=== PATIENT | male | born 1945 ===

== ENCOUNTER 2022-04-09 10:13 | Inpatient (IN) ==
[2022-04-09 11:25] LABS: Basophils % 0.1 %; Hematocrit 38.6 % (37.5-50.1); Hemoglobin 12.8 g/dL (12.9-16.9); Immature Granulocytes % 0.7 % (0-4); Lymphocytes # 0.5 K/mcL (0.6-4.6); Lymphocytes % 6.5 %; Mean Corpuscular HGB Conc 33.2 g/dL (31.6-35.5); Mean Corpuscular Hemoglobin 29.5 pg (28.0-33.3); Mean Corpuscular Volume 88.9 fL (83.0-100.0); Mean Platelet Volume 11.2 fL (9.4-12.4); Monocytes # 0.5 K/mcL (0.0-1.3); Monocytes % 6.7 %; Neutrophils # 6.6 K/mcL (1.6-8.9); Platelet Count 196 K/mcL (140-400); Red Blood Count 4.34 M/mcL (4.19-5.50); Red Cell Distribution Width 13.2 % (11.5-14.5); White Blood Count 7.7 K/mcL (4.3-11.1)
[2022-04-09] MEDS ORDERED: Vancomycin (wt based) 1,000 MG VIAL IV STA (11:31)
[2022-04-09] MEDS ORDERED: Piperacillin/Tazobactam 3.375 GM in 0.9 % Sodium Chloride Mini Bag 100 ML IVPB ONE (11:33)
[2022-04-09 11:54] LABS: BUN/Creatinine Ratio 27 (6-26); Blood Urea Nitrogen 23 mg/dL (8-23); Calcium 10.3 mg/dL (8.6-10.3); Carbon Dioxide 27 mEq/L (23-29); Chloride 94 mEq/L (98-107); Glucose 251 mg/dL (70-105); Osmolality,Calculated 282 (280-300); Potassium 4.6 mEq/L (3.5-5.1); Sodium 130 mEq/L (136-145)
[2022-04-09] MEDS ORDERED: Vancomycin 1,250 MG/262.5 ML IV.SOLN IVPB ONE (12:00)
[2022-04-09] MEDS ORDERED: Naloxone 0.4 MG/ML INJ IVP PRN (15:03)
[2022-04-09] MEDS ORDERED: D5% in Water 1,000 ML IVC PRN (15:08)
[2022-04-09] MEDS ORDERED: Dextrose Gel 15 GM/37.5 ML TUBE PO PRN ×2 (15:08)
[2022-04-09] MEDS ORDERED: *HR* Dextrose 50 % in Water (Syg) 50 ML SYRINGE IVP PRN (15:08)
[2022-04-09] MEDS: Insulin LISPRO 300 UNITS/3 ML VIAL SUBQ SCH ×2 (17:08→20:18)
[2022-04-09] MEDS: 0.9 % Sodium Chloride 1,000 ML IVC SCH (17:09)
[2022-04-09] MEDS ORDERED: Acetaminophen 325 MG TABLET PO PRN (20:13)
[2022-04-09] MEDS ORDERED: *HR* OxyCODONE Immed Rel 5 MG TABLET PO PRN (20:13)
[2022-04-09] MEDS ORDERED: Ondansetron ODT 4 MG TAB.RAPDIS SL PRN (20:13)
[2022-04-09] MEDS: Piperacillin/Tazobactam 3.375 GM in 0.9 % Sodium Chloride Mini Bag 100 ML IVPB SCH (20:17)
[2022-04-09] MEDS: *HR* HYDROcodone/Acet 5/325 mg TABLET PO PRN (20:28)
[2022-04-10 03:37] LABS: Basophils % 0.1 %; Eosinophils % 0.3 %; Hematocrit 31.5 % (37.5-50.1); Immature Granulocytes % 0.3 % (0-4); Lymphocytes % 13.6 %; Mean Corpuscular HGB Conc 33.3 g/dL (31.6-35.5); Mean Corpuscular Hemoglobin 29.5 pg (28.0-33.3); Mean Corpuscular Volume 88.5 fL (83.0-100.0); Mean Platelet Volume 11.3 fL (9.4-12.4); Monocytes # 0.9 K/mcL (0.0-1.3); Monocytes % 13.4 %; Neutrophils # 5.1 K/mcL (1.6-8.9); Platelet Count 152 K/mcL (140-400); Red Blood Count 3.56 M/mcL (4.19-5.50); Red Cell Distribution Width 13.2 % (11.5-14.5); Segmented Neutrophils % 72.3 %
[2022-04-10 03:42] LABS: Hemoglobin 10.5 g/dL (12.9-16.9)
[2022-04-10 03:48] LABS: Estimated Average Glucose 203 mg/dl; Hemoglobin A1C 8.7 %
[2022-04-10 04:00] LABS: BUN/Creatinine Ratio 24 (6-26); Blood Urea Nitrogen 20 mg/dL (8-23); Calcium 8.5 mg/dL (8.6-10.3); Carbon Dioxide 27 mEq/L (23-29); Chloride 98 mEq/L (98-107); Glucose 155 mg/dL (70-105); Magnesium 1.6 mg/dL (1.6-2.6); Osmolality,Calculated 280 (280-300); Potassium 3.7 mEq/L (3.5-5.1); Sodium 132 mEq/L (136-145)
[2022-04-10] MEDS: Piperacillin/Tazobactam 3.375 GM in 0.9 % Sodium Chloride Mini Bag 100 ML IVPB SCH ×3 (04:28→20:06)
[2022-04-10] MEDS: 0.9 % Sodium Chloride 1,000 ML IVC SCH (04:29)
[2022-04-10] MEDS: *HR* HYDROcodone/Acet 5/325 mg TABLET PO PRN ×2 (05:59→23:12)
[2022-04-10] MEDS: Clindamycin 600 MG/50 ML 600 MG/50 ML IV.SOLN IVPB SCH ×3 (08:40→23:12)
[2022-04-10] MEDS: Aspirin Enteric Coated 81 MG Tablet PO SCH (08:40)
[2022-04-10] MEDS: Metoprolol XL (24 HR) Succ 25 MG TAB.ER.24H PO SCH (08:40)
[2022-04-10] MEDS: Cyanocobalamin (B-12) 1,000 MCG TABLET PO SCH (08:40)
[2022-04-10] MEDS: Artificial Tears SOLN 15 ML BOTTLE BOTH EYES SCH ×2 (08:41→20:07)
[2022-04-10] MEDS: Insulin LISPRO 300 UNITS/3 ML VIAL SUBQ SCH ×4 (08:42→20:07)
[2022-04-10] MEDS: Vancomycin 1,250 MG/262.5 ML IV.SOLN IVPB SCH ×2 (09:58→20:06)
[2022-04-10] MEDS: Melatonin 3 MG TABLET PO PRN (23:12)
[2022-04-11 05:18] LABS: BUN/Creatinine Ratio 26 (6-26); Blood Urea Nitrogen 18 mg/dL (8-23); Carbon Dioxide 26 mEq/L (23-29); Chloride 99 mEq/L (98-107); Glucose 168 mg/dL (70-105); Osmolality,Calculated 278 (280-300); Potassium 3.7 mEq/L (3.5-5.1); Sodium 131 mEq/L (136-145)
[2022-04-11] MEDS: Piperacillin/Tazobactam 3.375 GM in 0.9 % Sodium Chloride Mini Bag 100 ML IVPB SCH ×3 (05:41→21:44)
[2022-04-11] MEDS: *HR* HYDROcodone/Acet 5/325 mg TABLET PO PRN ×3 (05:52→21:42)
[2022-04-11] MEDS: Insulin LISPRO 300 UNITS/3 ML VIAL SUBQ SCH ×4 (09:27→21:43)
[2022-04-11] MEDS: Aspirin Enteric Coated 81 MG Tablet PO SCH (09:28)
[2022-04-11] MEDS: Metoprolol XL (24 HR) Succ 25 MG TAB.ER.24H PO SCH (09:28)
[2022-04-11] MEDS: Vancomycin 1,250 MG/262.5 ML IV.SOLN IVPB SCH (09:28)
[2022-04-11] MEDS: Cyanocobalamin (B-12) 1,000 MCG TABLET PO SCH (09:29)
[2022-04-11] MEDS: Clindamycin 600 MG/50 ML 600 MG/50 ML IV.SOLN IVPB SCH ×2 (09:29→18:17)
[2022-04-11] MEDS: Artificial Tears SOLN 15 ML BOTTLE BOTH EYES SCH ×2 (09:29→21:44)
[2022-04-11] MEDS: Vancomycin 1,500 MG/265 ML IV.SOLN IVPB SCH (21:43)
[2022-04-11] MEDS: Melatonin 3 MG TABLET PO PRN (21:44)
[2022-04-12] MEDS: Clindamycin 600 MG/50 ML 600 MG/50 ML IV.SOLN IVPB SCH ×4 (00:10→23:54)
[2022-04-12] MEDS: Piperacillin/Tazobactam 3.375 GM in 0.9 % Sodium Chloride Mini Bag 100 ML IVPB SCH ×3 (03:56→19:40)
[2022-04-12] MEDS: Insulin LISPRO 300 UNITS/3 ML VIAL SUBQ SCH ×4 (08:05→21:26)
[2022-04-12] MEDS: Cyanocobalamin (B-12) 1,000 MCG TABLET PO SCH (08:05)
[2022-04-12] MEDS: Metoprolol XL (24 HR) Succ 25 MG TAB.ER.24H PO SCH (08:06)
[2022-04-12] MEDS: Aspirin Enteric Coated 81 MG Tablet PO SCH (08:06)
[2022-04-12] MEDS: Artificial Tears SOLN 15 ML BOTTLE BOTH EYES SCH ×2 (08:07→21:26)
[2022-04-12] MEDS ORDERED: Famotidine 20 MG/2 ML VIAL IVP ONE (08:29)
[2022-04-12] MEDS ORDERED: Acetaminophen IV 1,000 MG/100 ML BAG IVPB ONE (08:29)
[2022-04-12 08:56] LABS: Basophils % 0.7 %; Eosinophils % 0.7 %; Hematocrit 31.4 % (37.5-50.1); Hemoglobin 10.1 g/dL (12.9-16.9); Immature Granulocytes % 1.8 % (0-4); Lymphocytes # 0.9 K/mcL (0.6-4.6); Lymphocytes % 14.9 %; Mean Corpuscular HGB Conc 32.2 g/dL (31.6-35.5); Mean Corpuscular Hemoglobin 29.1 pg (28.0-33.3); Mean Corpuscular Volume 90.5 fL (83.0-100.0); Mean Platelet Volume 11.3 fL (9.4-12.4); Monocytes # 0.7 K/mcL (0.0-1.3); Monocytes % 10.8 %; Neutrophils # 4.3 K/mcL (1.6-8.9); Platelet Count 168 K/mcL (140-400); Red Blood Count 3.47 M/mcL (4.19-5.50); Red Cell Distribution Width 13.6 % (11.5-14.5); Segmented Neutrophils % 71.1 %; White Blood Count 6.1 K/mcL (4.3-11.1)
[2022-04-12 09:05] LABS: Magnesium 1.8 mg/dL (1.6-2.6); Phosphorous 2.9 mg/dL (2.7-4.5)
[2022-04-12 09:06] LABS: BUN/Creatinine Ratio 20 (6-26); Blood Urea Nitrogen 15 mg/dL (8-23); Calcium 8.3 mg/dL (8.6-10.3); Carbon Dioxide 26 mEq/L (23-29); Chloride 100 mEq/L (98-107); Glucose 169 mg/dL (70-105); Osmolality,Calculated 281 (280-300); Potassium 3.8 mEq/L (3.5-5.1); Sodium 133 mEq/L (136-145)
[2022-04-12] MEDS ORDERED: *HR* Propofol 200 MG/20 ML VIAL IVP ONE ×2 (09:36→10:24)
[2022-04-12] MEDS ORDERED: Lidocaine -MPF 2% 2 ML VIAL ONE (09:36)
[2022-04-12] MEDS ORDERED: Lidocaine -MPF 1% 5 ML AMPUL ONE (09:38)
[2022-04-12] MEDS ORDERED: *HR* FentaNYL (PF) 100 MCG/2 ML VIAL ONE (10:13)
[2022-04-12] MEDS: Vancomycin 1,500 MG/265 ML IV.SOLN IVPB SCH ×2 (11:47→23:55)
[2022-04-12] MEDS: *HR* HYDROcodone/Acet 5/325 mg TABLET PO PRN (17:41)
[2022-04-13] MEDS: Piperacillin/Tazobactam 3.375 GM in 0.9 % Sodium Chloride Mini Bag 100 ML IVPB SCH ×3 (04:03→21:39)
[2022-04-13 06:01] LABS: Basophils % 0.5 %; Eosinophils # 0.1 K/mcL (0.0-0.6); Eosinophils % 2.1 %; Hemoglobin 9.3 g/dL (12.9-16.9); Immature Granulocytes % 2.4 % (0-4); Mean Corpuscular HGB Conc 33.2 g/dL (31.6-35.5); Mean Corpuscular Hemoglobin 29.4 pg (28.0-33.3); Mean Corpuscular Volume 88.6 fL (83.0-100.0); Mean Platelet Volume 11.3 fL (9.4-12.4); Monocytes # 0.7 K/mcL (0.0-1.3); Monocytes % 11.2 %; Neutrophils # 3.8 K/mcL (1.6-8.9); Platelet Count 172 K/mcL (140-400); Red Blood Count 3.16 M/mcL (4.19-5.50); Red Cell Distribution Width 13.6 % (11.5-14.5); Segmented Neutrophils % 65.8 %; White Blood Count 5.8 K/mcL (4.3-11.1)
[2022-04-13 06:19] LABS: BUN/Creatinine Ratio 15 (6-26); Blood Urea Nitrogen 12 mg/dL (8-23); Calcium 7.7 mg/dL (8.6-10.3); Carbon Dioxide 27 mEq/L (23-29); Chloride 102 mEq/L (98-107); Glucose 239 mg/dL (70-105); Magnesium 1.7 mg/dL (1.6-2.6); Osmolality,Calculated 288 (280-300); Phosphorous 2.5 mg/dL (2.7-4.5); Potassium 3.7 mEq/L (3.5-5.1); Sodium 135 mEq/L (136-145)
[2022-04-13] MEDS: Lactobacillus 1 EACH CAP.SPRINK PO SCH ×2 (08:11→21:38)
[2022-04-13] MEDS: Aspirin Enteric Coated 81 MG Tablet PO SCH (08:11)
[2022-04-13] MEDS: Metoprolol XL (24 HR) Succ 25 MG TAB.ER.24H PO SCH (08:11)
[2022-04-13] MEDS: Clindamycin 600 MG/50 ML 600 MG/50 ML IV.SOLN IVPB SCH (08:11)
[2022-04-13] MEDS: Cyanocobalamin (B-12) 1,000 MCG TABLET PO SCH (08:11)
[2022-04-13] MEDS: Artificial Tears SOLN 15 ML BOTTLE BOTH EYES SCH ×2 (08:12→21:38)
[2022-04-13] MEDS: Insulin LISPRO 300 UNITS/3 ML VIAL SUBQ SCH ×4 (08:24→21:39)
[2022-04-13] MEDS: Vancomycin 1,500 MG/265 ML IV.SOLN IVPB SCH (12:04)
[2022-04-13] MEDS: Insulin DETEMIR 100 UNIT/ML X5UNITS SUBQ SCH (21:38)
[2022-04-14] MEDS: Vancomycin 1,500 MG/265 ML IV.SOLN IVPB SCH ×2 (04:45→16:23)
[2022-04-14] MEDS: Piperacillin/Tazobactam 3.375 GM in 0.9 % Sodium Chloride Mini Bag 100 ML IVPB SCH ×3 (04:45→20:38)
[2022-04-14] MEDS: *HR* Enoxaparin 40 MG/0.4 ML SYRINGE SQ SCH (04:50)
[2022-04-14] MEDS ORDERED: Vancomycin 1,500 MG/265 ML IV.SOLN IVPB SCH (05:00)
[2022-04-14] MEDS: Insulin LISPRO 300 UNITS/3 ML VIAL SUBQ SCH ×3 (08:30→16:31)
[2022-04-14] MEDS: Metoprolol XL (24 HR) Succ 25 MG TAB.ER.24H PO SCH (08:31)
[2022-04-14] MEDS: Aspirin Enteric Coated 81 MG Tablet PO SCH (08:31)
[2022-04-14] MEDS: Lactobacillus 1 EACH CAP.SPRINK PO SCH ×2 (08:31→20:38)
[2022-04-14] MEDS: Cyanocobalamin (B-12) 1,000 MCG TABLET PO SCH (08:31)
[2022-04-14] MEDS: Artificial Tears SOLN 15 ML BOTTLE BOTH EYES SCH ×2 (08:31→20:41)
[2022-04-14] MEDS: Insulin DETEMIR 100 UNIT/ML X5UNITS SUBQ SCH ×2 (09:55→20:40)
[2022-04-15] MEDS: Piperacillin/Tazobactam 3.375 GM in 0.9 % Sodium Chloride Mini Bag 100 ML IVPB SCH ×3 (05:39→21:58)
[2022-04-15] MEDS: Vancomycin 1,500 MG/265 ML IV.SOLN IVPB SCH ×2 (05:43→17:41)
[2022-04-15] MEDS: *HR* Enoxaparin 40 MG/0.4 ML SYRINGE SQ SCH (05:59)
[2022-04-15] MEDS ORDERED: Vancomycin 1,000 MG, Sodium Chloride IRRigation 1,000 ML IR ONE (09:30)
[2022-04-15] MEDS: Aspirin Enteric Coated 81 MG Tablet PO SCH (10:24)
[2022-04-15] MEDS: Artificial Tears SOLN 15 ML BOTTLE BOTH EYES SCH ×2 (10:24→20:50)
[2022-04-15] MEDS: Insulin LISPRO 300 UNITS/3 ML VIAL SUBQ SCH ×3 (10:24→17:25)
[2022-04-15] MEDS: Cyanocobalamin (B-12) 1,000 MCG TABLET PO SCH (10:24)
[2022-04-15] MEDS: Lactobacillus 1 EACH CAP.SPRINK PO SCH ×2 (10:24→20:44)
[2022-04-15] MEDS: Insulin DETEMIR 100 UNIT/ML X5UNITS SUBQ SCH ×2 (10:25→21:56)
[2022-04-15 11:09] LABS: Basophils % 0.4 %; Eosinophils # 0.2 K/mcL (0.0-0.6); Eosinophils % 2.8 %; Hematocrit 30.3 % (37.5-50.1); Immature Granulocytes % 2.1 % (0-4); Lymphocytes # 1.2 K/mcL (0.6-4.6); Lymphocytes % 16.9 %; Mean Corpuscular Hemoglobin 28.9 pg (28.0-33.3); Mean Corpuscular Volume 87.6 fL (83.0-100.0); Mean Platelet Volume 10.6 fL (9.4-12.4); Monocytes # 0.5 K/mcL (0.0-1.3); Monocytes % 7.5 %; Platelet Count 258 K/mcL (140-400); Red Blood Count 3.46 M/mcL (4.19-5.50); Red Cell Distribution Width 13.8 % (11.5-14.5); Segmented Neutrophils % 70.3 %; White Blood Count 7.1 K/mcL (4.3-11.1)
[2022-04-15] MEDS ORDERED: Acetaminophen IV 1,000 MG/100 ML BAG IVPB ONE ×2 (11:11→11:26)
[2022-04-15] MEDS ORDERED: Famotidine 20 MG/2 ML VIAL IVP ONE (11:11)
[2022-04-15 11:23] LABS: % Iron Saturation 14 % (20-55); Iron 36 mcg/dL (65-175); Transferrin 190 mg/dL (203-362)
[2022-04-15] MEDS ORDERED: Famotidine 20 MG/2 ML VIAL ONE (11:26)
[2022-04-15 11:36] LABS: BUN/Creatinine Ratio 13 (6-26); Blood Urea Nitrogen 10 mg/dL (8-23); Calcium 8.4 mg/dL (8.6-10.3); Carbon Dioxide 26 mEq/L (23-29); Chloride 104 mEq/L (98-107); Glucose 119 mg/dL (70-105); Magnesium 1.8 mg/dL (1.6-2.6); Osmolality,Calculated 280 (280-300); Potassium 3.9 mEq/L (3.5-5.1); Sodium 135 mEq/L (136-145)
[2022-04-15 11:41] LABS: Ferritin 53 ng/mL (20-250)
[2022-04-15] MEDS ORDERED: *HR* FentaNYL (PF) 100 MCG/2 ML VIAL ONE (11:41)
[2022-04-15] MEDS ORDERED: Ondansetron 4 MG/2 ML VIAL ONE (11:42)
[2022-04-15] MEDS ORDERED: *HR* Propofol 200 MG/20 ML VIAL IVP ONE (11:42)
[2022-04-15] MEDS ORDERED: Lidocaine -MPF 2% 2 ML VIAL ONE (11:42)
[2022-04-15 11:46] LABS: Folate 17.1 ng/mL (3.0-16.0)
[2022-04-15 11:48] LABS: Vitamin B12 > 1500 pg/mL (250-1100)
[2022-04-15] MEDS ORDERED: Lidocaine -MPF 1% 5 ML AMPUL ONE (12:18)
[2022-04-15] MEDS: Iron Sucrose Complex 200 MG in 0.9 % Sodium Chloride 100 ML IVPB SCH (20:44)
[2022-04-16 04:53] LABS: Basophils % 0.3 %; Eosinophils # 0.2 K/mcL (0.0-0.6); Eosinophils % 2.1 %; Hematocrit 30.1 % (37.5-50.1); Hemoglobin 9.8 g/dL (12.9-16.9); Immature Granulocytes % 1.9 % (0-4); Lymphocytes % 13.2 %; Mean Corpuscular HGB Conc 32.6 g/dL (31.6-35.5); Mean Corpuscular Hemoglobin 29.2 pg (28.0-33.3); Mean Corpuscular Volume 89.6 fL (83.0-100.0); Monocytes # 0.5 K/mcL (0.0-1.3); Monocytes % 6.5 %; Neutrophils # 5.9 K/mcL (1.6-8.9); Platelet Count 242 K/mcL (140-400); Red Blood Count 3.36 M/mcL (4.19-5.50); White Blood Count 7.7 K/mcL (4.3-11.1)
[2022-04-16 05:12] LABS: BUN/Creatinine Ratio 13 (6-26); Blood Urea Nitrogen 11 mg/dL (8-23); Calcium 8.4 mg/dL (8.6-10.3); Carbon Dioxide 28 mEq/L (23-29); Chloride 102 mEq/L (98-107); Glucose 197 mg/dL (70-105); Magnesium 1.9 mg/dL (1.6-2.6); Osmolality,Calculated 287 (280-300); Potassium 3.9 mEq/L (3.5-5.1); Sodium 136 mEq/L (136-145)
[2022-04-16] MEDS: Piperacillin/Tazobactam 3.375 GM in 0.9 % Sodium Chloride Mini Bag 100 ML IVPB SCH ×3 (05:27→20:22)
[2022-04-16] MEDS: Vancomycin 1,500 MG/265 ML IV.SOLN IVPB SCH (05:27)
[2022-04-16] MEDS: *HR* Enoxaparin 40 MG/0.4 ML SYRINGE SQ SCH (05:27)
[2022-04-16] MEDS: Insulin LISPRO 300 UNITS/3 ML VIAL SUBQ SCH ×3 (07:52→17:50)
[2022-04-16] MEDS: Aspirin Enteric Coated 81 MG Tablet PO SCH (08:26)
[2022-04-16] MEDS: Vancomycin 1,250 MG/262.5 ML IV.SOLN IVPB SCH ×2 (08:26→20:22)
[2022-04-16] MEDS: Insulin DETEMIR 100 UNIT/ML X5UNITS SUBQ SCH ×2 (08:26→20:23)
[2022-04-16] MEDS: Lactobacillus 1 EACH CAP.SPRINK PO SCH ×2 (08:26→20:23)
[2022-04-16] MEDS: Cyanocobalamin (B-12) 1,000 MCG TABLET PO SCH (08:26)
[2022-04-16] MEDS: Artificial Tears SOLN 15 ML BOTTLE BOTH EYES SCH ×2 (08:27→20:23)
[2022-04-16] MEDS: Iron Sucrose Complex 200 MG in 0.9 % Sodium Chloride 100 ML IVPB SCH (10:20)
[2022-04-17] MEDS: Piperacillin/Tazobactam 3.375 GM in 0.9 % Sodium Chloride Mini Bag 100 ML IVPB SCH ×3 (05:23→19:59)
[2022-04-17] MEDS: *HR* Enoxaparin 40 MG/0.4 ML SYRINGE SQ SCH (05:23)
[2022-04-17] MEDS: Lactobacillus 1 EACH CAP.SPRINK PO SCH ×2 (08:42→19:59)
[2022-04-17] MEDS: Cyanocobalamin (B-12) 1,000 MCG TABLET PO SCH (08:42)
[2022-04-17] MEDS: Aspirin Enteric Coated 81 MG Tablet PO SCH (08:42)
[2022-04-17] MEDS: Insulin LISPRO 300 UNITS/3 ML VIAL SUBQ SCH ×3 (08:42→16:36)
[2022-04-17] MEDS: Vancomycin 1,250 MG/262.5 ML IV.SOLN IVPB SCH (08:42)
[2022-04-17] MEDS: Insulin DETEMIR 100 UNIT/ML X5UNITS SUBQ SCH ×2 (08:47→19:59)
[2022-04-17] MEDS: Artificial Tears SOLN 15 ML BOTTLE BOTH EYES SCH ×2 (08:48→20:00)
[2022-04-17 09:37] LABS: Basophils % 0.4 %; Eosinophils # 0.2 K/mcL (0.0-0.6); Hematocrit 31.7 % (37.5-50.1); Hemoglobin 10.4 g/dL (12.9-16.9); Immature Granulocytes % 1.3 % (0-4); Lymphocytes % 12.8 %; Mean Corpuscular HGB Conc 32.8 g/dL (31.6-35.5); Mean Corpuscular Hemoglobin 29.2 pg (28.0-33.3); Mean Platelet Volume 10.5 fL (9.4-12.4); Monocytes # 0.4 K/mcL (0.0-1.3); Monocytes % 5.7 %; Neutrophils # 5.8 K/mcL (1.6-8.9); Platelet Count 254 K/mcL (140-400); Red Blood Count 3.56 M/mcL (4.19-5.50); Red Cell Distribution Width 13.9 % (11.5-14.5); Segmented Neutrophils % 77.8 %; White Blood Count 7.5 K/mcL (4.3-11.1)
[2022-04-17 09:59] LABS: BUN/Creatinine Ratio 9 (6-26); Blood Urea Nitrogen 7 mg/dL (8-23); Calcium 8.4 mg/dL (8.6-10.3); Carbon Dioxide 30 mEq/L (23-29); Chloride 103 mEq/L (98-107); Glucose 153 mg/dL (70-105); Magnesium 1.9 mg/dL (1.6-2.6); Osmolality,Calculated 287 (280-300); Potassium 3.9 mEq/L (3.5-5.1); Sodium 138 mEq/L (136-145)
[2022-04-18] MEDS: Piperacillin/Tazobactam 3.375 GM in 0.9 % Sodium Chloride Mini Bag 100 ML IVPB SCH ×3 (03:39→19:44)
[2022-04-18] MEDS: *HR* Enoxaparin 40 MG/0.4 ML SYRINGE SQ SCH (05:19)
[2022-04-18] MEDS: Insulin LISPRO 300 UNITS/3 ML VIAL SUBQ SCH ×3 (07:36→16:48)
[2022-04-18] MEDS: Artificial Tears SOLN 15 ML BOTTLE BOTH EYES SCH ×2 (08:38→19:45)
[2022-04-18] MEDS: Lactobacillus 1 EACH CAP.SPRINK PO SCH ×2 (08:38→19:45)
[2022-04-18] MEDS: Aspirin Enteric Coated 81 MG Tablet PO SCH (08:38)
[2022-04-18] MEDS: Cyanocobalamin (B-12) 1,000 MCG TABLET PO SCH (08:38)
[2022-04-18 10:53] LABS: Basophils % 0.3 %; Eosinophils # 0.1 K/mcL (0.0-0.6); Eosinophils % 1.8 %; Hematocrit 32.7 % (37.5-50.1); Hemoglobin 10.5 g/dL (12.9-16.9); Immature Granulocytes % 1.1 % (0-4); Lymphocytes % 12.9 %; Mean Corpuscular HGB Conc 32.1 g/dL (31.6-35.5); Mean Corpuscular Hemoglobin 28.7 pg (28.0-33.3); Mean Corpuscular Volume 89.3 fL (83.0-100.0); Mean Platelet Volume 10.7 fL (9.4-12.4); Monocytes # 0.4 K/mcL (0.0-1.3); Monocytes % 5.5 %; Neutrophils # 6.2 K/mcL (1.6-8.9); Platelet Count 263 K/mcL (140-400); Red Blood Count 3.66 M/mcL (4.19-5.50); Red Cell Distribution Width 13.8 % (11.5-14.5); Segmented Neutrophils % 78.4 %; White Blood Count 7.9 K/mcL (4.3-11.1)
[2022-04-18 11:12] LABS: BUN/Creatinine Ratio 9 (6-26); Blood Urea Nitrogen 8 mg/dL (8-23); Calcium 8.8 mg/dL (8.6-10.3); Carbon Dioxide 29 mEq/L (23-29); Chloride 102 mEq/L (98-107); Glucose 172 mg/dL (70-105); Magnesium 1.9 mg/dL (1.6-2.6); Osmolality,Calculated 286 (280-300); Potassium 3.9 mEq/L (3.5-5.1); Sodium 137 mEq/L (136-145)
[2022-04-18] MEDS: Insulin DETEMIR 100 UNIT/ML X5UNITS SUBQ SCH (20:31)
[2022-04-19 01:13] LABS: Basophils % 0.4 %; Eosinophils # 0.2 K/mcL (0.0-0.6); Eosinophils % 2.4 %; Hematocrit 32.9 % (37.5-50.1); Hemoglobin 10.6 g/dL (12.9-16.9); Lymphocytes # 1.4 K/mcL (0.6-4.6); Mean Corpuscular HGB Conc 32.2 g/dL (31.6-35.5); Mean Corpuscular Hemoglobin 28.9 pg (28.0-33.3); Mean Corpuscular Volume 89.6 fL (83.0-100.0); Mean Platelet Volume 10.7 fL (9.4-12.4); Monocytes # 0.5 K/mcL (0.0-1.3); Monocytes % 6.6 %; Platelet Count 261 K/mcL (140-400); Red Blood Count 3.67 M/mcL (4.19-5.50); Red Cell Distribution Width 13.9 % (11.5-14.5); Segmented Neutrophils % 69.6 %; White Blood Count 7.1 K/mcL (4.3-11.1)
[2022-04-19 01:28] LABS: BUN/Creatinine Ratio 11 (6-26); Blood Urea Nitrogen 10 mg/dL (8-23); Calcium 8.9 mg/dL (8.6-10.3); Carbon Dioxide 27 mEq/L (23-29); Chloride 101 mEq/L (98-107); Glucose 121 mg/dL (70-105); Magnesium 1.9 mg/dL (1.6-2.6); Osmolality,Calculated 284 (280-300); Potassium 3.8 mEq/L (3.5-5.1); Sodium 137 mEq/L (136-145)
[2022-04-19] MEDS: Piperacillin/Tazobactam 3.375 GM in 0.9 % Sodium Chloride Mini Bag 100 ML IVPB SCH (03:27)
[2022-04-19] MEDS: *HR* Enoxaparin 40 MG/0.4 ML SYRINGE SQ SCH (05:13)
[2022-04-19] MEDS: Lactobacillus 1 EACH CAP.SPRINK PO SCH ×2 (07:48→21:05)
[2022-04-19] MEDS: Aspirin Enteric Coated 81 MG Tablet PO SCH (07:48)
[2022-04-19] MEDS: Cyanocobalamin (B-12) 1,000 MCG TABLET PO SCH (07:48)
[2022-04-19] MEDS: metroNIDAZOLE 500 MG TABLET PO SCH ×3 (07:48→21:05)
[2022-04-19] MEDS: Artificial Tears SOLN 15 ML BOTTLE BOTH EYES SCH ×2 (07:50→21:04)
[2022-04-19] MEDS: Insulin LISPRO 300 UNITS/3 ML VIAL SUBQ SCH ×3 (08:22→16:08)
[2022-04-19] MEDS ORDERED: Vancomycin 1,250 MG/262.5 ML IV.SOLN IVPB SCH (14:00)
[2022-04-19] MEDS: cefTRIAXone 2,000 MG in 0.9 % Sodium Chloride Mini Bag 100 ML IVPB SCH (14:42)
[2022-04-19] MEDS: Insulin DETEMIR 100 UNIT/ML X5UNITS SUBQ SCH (21:05)
[2022-04-20] MEDS: *HR* Enoxaparin 40 MG/0.4 ML SYRINGE SQ SCH (05:14)
[2022-04-20 05:45] LABS: Basophils % 0.3 %; Eosinophils # 0.1 K/mcL (0.0-0.6); Eosinophils % 2.2 %; Hematocrit 34.2 % (37.5-50.1); Hemoglobin 11.2 g/dL (12.9-16.9); Immature Granulocytes % 0.8 % (0-4); Lymphocytes # 1.3 K/mcL (0.6-4.6); Mean Corpuscular HGB Conc 32.7 g/dL (31.6-35.5); Mean Corpuscular Hemoglobin 28.9 pg (28.0-33.3); Mean Corpuscular Volume 88.4 fL (83.0-100.0); Mean Platelet Volume 10.2 fL (9.4-12.4); Monocytes # 0.5 K/mcL (0.0-1.3); Neutrophils # 4.1 K/mcL (1.6-8.9); Platelet Count 251 K/mcL (140-400); Red Blood Count 3.87 M/mcL (4.19-5.50); Red Cell Distribution Width 13.8 % (11.5-14.5); Segmented Neutrophils % 67.7 %
[2022-04-20 06:05] LABS: BUN/Creatinine Ratio 17 (6-26); Blood Urea Nitrogen 11 mg/dL (8-23); Calcium 6.9 mg/dL (8.6-10.3); Carbon Dioxide 23 mEq/L (23-29); Chloride 112 mEq/L (98-107); Glucose 94 mg/dL (70-105); Magnesium 1.5 mg/dL (1.6-2.6); Osmolality,Calculated 289 (280-300); Sodium 140 mEq/L (136-145)
[2022-04-20] MEDS: Insulin LISPRO 300 UNITS/3 ML VIAL SUBQ SCH ×2 (08:41→12:54)
[2022-04-20] MEDS: Cyanocobalamin (B-12) 1,000 MCG TABLET PO SCH (08:55)
[2022-04-20] MEDS: cefTRIAXone 2,000 MG in 0.9 % Sodium Chloride Mini Bag 100 ML IVPB SCH (08:55)
[2022-04-20] MEDS: metroNIDAZOLE 500 MG TABLET PO SCH ×2 (08:55→15:53)
[2022-04-20] MEDS: Lactobacillus 1 EACH CAP.SPRINK PO SCH (08:55)
[2022-04-20] MEDS: Aspirin Enteric Coated 81 MG Tablet PO SCH (08:56)
[2022-04-20] MEDS: Artificial Tears SOLN 15 ML BOTTLE BOTH EYES SCH (09:17)
[2022-04-20] MEDS ORDERED: Flu Vac QV 22-23 (6MOS UP)/PF 0.5 ML SYRINGE IM ONE (16:27)
[2022-04-20 17:15] VITALS: BP 129/76; PULSE 74; TEMP 98; O2SAT 98
== END 2022-04-20 18:33 | disposition home health service (06) | DRG 239 ==
LOC: EMEROOARM 10:13 → 4WAOSI 10:13 → SUATTDRO 16:15 → 4WAOSI 16:47
PROVIDERS: ADMIT Hospitalist; ATTEND Pharmacist